=== PATIENT | female | born 1935 | race Caucasian/White ===

== ENCOUNTER 2018-03-20 22:30 | Emergency (ER) | payer MEDICARE, OTHER ==
[~2018-03-20] VITALS: Ht 152.4 cm; Wt 65.3 kg
[~2018-03-20 22:30] MED LIST: ACCUPRIL40 MG; ADULT LOW DOSE81 MG; ALPRAZOLAM0.25 M1; B-121000 MCG; CALCIUM 600 +1 EAC5; FOLIC ACID1 MG; NEURONTIN 300M300 M2; NORVASC 5 MG TAB5 MG; PLAVIX 75 MG TA75 MG; RANITIDINE HCL300 M1; TIMOLOL MA0.5 %/5 M2; TRIAMTERENE-HC1 EAC3; VITAMIN D-40400 UNIT
[2018-03-21 00:55] VITALS: BP 158/77
== END 2018-03-21 00:55 | disposition home or self-care (01) ==
LOC: M.ERS 22:30
DX: S01.01XA Laceration without foreign body of scalp, initial encounter (principal); I10 Essential (primary) hypertension; Z96.642 Presence of left artificial hip joint; Z96.653 Presence of artificial knee joint, bilateral; Z88.5 Allergy status to narcotic agent; W01.190A Fall on same level from slipping, tripping and stumbling with subsequent striking against furniture, initial encounter; Y93.89 Activity, other specified; Y92.89 Other specified places as the place of occurrence of the external cause; Y99.8 Other external cause status

== ENCOUNTER 2018-03-30 08:19 | Emergency (ER) | payer MEDICARE, OTHER ==
[~2018-03-30] VITALS: Ht 160 cm; Wt 65.8 kg
[2018-03-30 10:23] VITALS: BP 152/70
== END 2018-03-30 10:24 | disposition home or self-care (01) ==
LOC: M.ERS 08:19
DX: S32.89XA Fracture of other parts of pelvis, initial encounter for closed fracture (principal); I10 Essential (primary) hypertension; Z96.642 Presence of left artificial hip joint; Z96.653 Presence of artificial knee joint, bilateral; Z88.6 Allergy status to analgesic agent; X58.XXXA Exposure to other specified factors, initial encounter; Y93.89 Activity, other specified; Y92.89 Other specified places as the place of occurrence of the external cause; Y99.8 Other external cause status

== ENCOUNTER → 2019-08-25 | Outpatient (CLI) | payer OTHER | LOC: M.RAD 15:40 | DX: N63.21 Unspecified lump in the left breast, upper outer quadrant (principal); R92.1 Mammographic calcification found on diagnostic imaging of breast ==

== ENCOUNTER → 2019-08-27 | Outpatient (CLI) | payer OTHER ==
--- NOTE | 2019-09-02 17:07 | PATH ---
[address] [address] PATHOLOGY RPT PROCEDURE Name: PATTIE ENCARNACION Room: [facility] Ree#: [id number] Admission: 08/27/19 Date of : 34 Discharge: Report #: [id number] Path Case #: [id number] LCA Accession Number: [id number] . 01 Material submitted: . breast - LEFT BREAST BIOPSY, 1:00, 5CMFN. Modifiers: left . 01 Clinical history: . Left breast mass 1.41 x 0.99 x 1.88 cm . 02 Diagnosis: Left breast mass, 1:00, 5 cm from nipple, image-guided core biopsies: - INFILTRATING LOBULAR CARCINOMA, LOW-GRADE, SPANNING 12 MM, ASSOCIATED WITH CALCIFICATIONS. SEE COMMENT. (SHLOMO:juancarlos; 08/31/2019) MBR 08/31/2019 1117 Local . 02 Comment: Specimen type: Image-guided core biopsies Tumor site: Left breast, 1:00, 5 cm from nipple Tumor quantitation: Approximately 90% of submitted tissues Histologic type: Lobular carcinoma Histologic grade: Low-grade (I of III) Tubules, nuclei and mitoses: 3, 1, 1 LVSI: Not identified Microcalcifications: Identified Markers: Breast tumor profile pending Block: A1 . . Properly controlled immunohistochemical stains performed on A3 show the malignant cells to have the following results supporting the classification: . E-cadherin - negative. Keratin AE1/AE3 - positive. . The tumor infiltrates in the classic lobular "bermudian file" fashion as well as in small nests with scattered tubular formation and is associated with focal lobular neoplasia. No ductal carcinoma in situ is present. Breast tumor profile studies are pending on A1 and will be the subject of an addendum report. Reviewed with Dr. Louisa Rosenberg who agrees with the diagnosis. Zoila Edwards ([facility] breast navigator) notified at approximately 10:20 on 08/31/2019. . (SHLOMO:juancarlos; 08/31/2019) . 02 [place] [address] PATHOLOGY RPT PROCEDURE Name: PATTIE ENCARNACION Room: [facility] Keenan#: [id number] Admission: 08/27/19 Date of : 34 Discharge: Report #: [id number] Path Case #: [id number] Addendum: . Special studies report received from [facility], [address] [place] [address], [address], [place], [address], on case [id number], labeled with their number [id number], dated . . Breast/Prognostic Marker Analysis . Specimen Site: Lt Breast,1:00, 5 cm FN, Breast Carcinoma (Biopsy) Specimen ID #: [id number] . . ER (Estrogen Receptor) Present/Positive Percent: 95.09% Analysis: Image Comments: Staining intensity: Strong . IN (Progesterone Receptor) Present/Positive Percent: 78.92% Analysis: Image Comments: Staining intensity: Moderate to strong . HER2 Not Over-Expressed Score: 1+ Analysis: Image . Ki-67 Low Proliferation Percent: 2.65% Analysis: Image . Time to Fixation (Cold Ischemic Time): 4 minutes Duration of Fixation: 6-72 hours Type of Fixative: 10% Neutral Buffered Formalin . at [facility]. Leatha Carrero M.D. Pathologist . . Methodology The HER2 Receptor protein expression is analyzed using the Burrows HER2 rabbit monoclonal antibody (clone 4B5). This assay is used for diagnostic determination of the HER2 protein over-expression in paraffin embedded, formalin fixed breast cancer tissue on the Burrows Benchmark. The specimen is processed using a secondary antibody-[place] [address] PATHOLOGY RPT PROCEDURE Name: PATTIE ENCARNACION Room: [facility] Keenan#: [id number] Admission: 08/27/19 Date of : 34 Discharge: Report #: [id number] Path Case #: [id number] The membrane staining of the tumor is determined either by manual score or image analysis. This antibody is intended for in vitro diagnostic use. The score is reported as 0, 1+, 2+, or 3+. This test is used for clinical purposes. . A rabbit monoclonal antibody (clone SP1) that recognized the Estrogen Receptor is used to perform immunohistochemistry on routinely fixed (formalin) paraffin embedded tissue on the Burrows Benchmark. The specimen is processed using a secondary antibody-HRP conjugate detection system. The percentage of stained tumor nuclei is determined either manually or by image analysis. This test is intended for in vitro diagnostic use. This test is used for clinical purposes. . A rabbit monoclonal antibody (clone 1E2) that recognized the Progesterone Receptor is used to perform immunohistochemistry on routinely fixed (formalin) paraffin embedded tissue on the Burrows Benchmark. The specimen is processed using a secondary antibody-HRP conjugate detection system. The percentage of stained tumor nuclei is determined either manually or by image analysis. This test is intended for in vitro diagnostic use. This test is used for clinical purposes. . A rabbit monoclonal antibody (clone 30-9) that recognized Ki67 is used to perform immunohistochemistry on routinely fixed (formalin) paraffin embedded tissue on the Burrows Benchmark. The specimen is processed using a secondary antibody-HRP conjugate detection system. The percentage of stained tumor nuclei is determined either manually or by image analysis. This test is intended for in vitro diagnostic use. This test is used for clinical purposes. . Intended Use: This antibody is intended for in vitro diagnostic (IVD) use. HER2 (4B5) is a rabbit monoclonal antibody intended for the semi-quantitative detection of HER2 antigen in sections of formalin-fixed, paraffin embedded normal and neoplastic tissue. . This antibody is intended for in vitro diagnostic (IVD) use. Estrogen Receptor (ER) (SP1) is a rabbit monoclonal antibody (IgG) that is intended for the qualitative detection of estrogen receptor (ER) antigen in sections of formalin-fixed, paraffin-embedded tissue. ER is a rabbit monoclonal antibody that recognizes human estrogen receptor alpha. . This antibody is intended for in vitro diagnostic (IVD) use. Progesterone Receptor (IN) (1E2) is a rabbit monoclonal antibody (IgG) that is intended for the qualitative detection of progesterone receptor (IN) antigen in sections of formalin fixed, paraffin embedded tissue. IN is a rabbit monoclonal antibody that recognizes the A and B forms of the human progesterone receptor. . This antibody is intended for in vitro diagnostic (IVD) use. Ki-67 (30-9) [place] [address] PATHOLOGY RPT PROCEDURE Name: APPLE ENCARNACIONIA Nita Room: [facility]#: [id number] Admission: 08/27/19 Date of : 34 Discharge: Report #: [id number] Path Case #: [id number] is a rabbit monoclonal antibody (IgG) directed against C-terminal portion of Ki-67 antigen. Staining for Ki-67 can be used to aid in assessing the proliferative activity of normal and neoplastic tissue. Ki-67 is a nuclear protein expressed in proliferating cells. During the cell cycle, the Ki-67 antigen is present in the G1, S, G2 and M phase but is absent in the G0 (quiescent phase). . . Disclaimer: This Test was performed by [facility] at [address], [address]. . [facility] is a business unit of [employer] a wholly-owned subsidiary of [employer]. . This assay has not been validated on decalcified tissues. Results should be interpreted with caution if this specimen was decalcified given the likelihood of false negativity on decalcified specimens. . Any image(s) that accompany this report is/are a open claims representative image(s) only and should not be used to render a diagnosis. . This interpretation is contingent on the specimen and the clinical information received. . For any special tests/stains performed, known positive cells or tissues are tested with each marker and examined to ensure positivity. Positive and negative internal controls, if present, react appropriately. . This analysis is an adjunct to the evaluation of the referring physician and does not represent a final diagnosis. . The immunohistochemistry tests performed at [facility]. were validated on tissue fixed in 10% neutral buffered formalin. The performance characteristics of the tests performed on tissue processed in other fixatives is not known. . HER2 testing at [facility] [employer] is performed in compliance with the 2018 updated ASCO/CAP Clinical Practice Guideline Focused Update. If the result is EQUIVOCAL (2+), it must be confirmed by an alternative assay such as FISH or Dual SANDY. REF: Francisca TEJADA, MARKUS Gallegos et al: Human Epidermal Growth Factor Receptor 2 Testing in Breast Cancer: ASCO/CAP Clinical Practice Guideline Focused Update. J Clin Oncol 36:0931-7563, 2018. . HER2 and ER/IN ASCO/CAP guidelines require fixation in neutral buffered formalin for a minimum of 6 and a maximum of 72 hours. Fixation times less than 6 hours may not adequately preserve cell [place] [address] PATHOLOGY RPT PROCEDURE Name: PATTIE ENCARNACION Room: [facility] Keenan#: [id number] Admission: 08/27/19 Date of : 34 Discharge: Report #: [id number] Path Case #: [id number] longer than 72 hours may cause excess cross-linking of proteins reducing the antigen available for staining. Either scenario can cause reduced staining; hence false negative results are possible and should be considered for these situations if the HER2 IHC score is less than 3+ or ER or IN is negative (no staining or <1% positive). It is recommended that specimens fixed longer than 72 hours with HER2 IHC scores less than 3+ be confirmed by HER2 FISH or Dual SADNY. The time from biopsy/excision to fixation in formalin (cold ischemic time) must be less than 1 hour. Time to fixation (cold ischemic time) greater than 1 hour should be interpreted with caution. HER2 testing, mainly HER2 by FISH, is particularly vulnerable since excessive cold ischemic time results in preferential loss of HER2 probe signals that may lead to false negative results. . SCORE STAINING PATTERN IN TUMOR CELLS INTERPRETATION RESULTS 0 No staining observed or incomplete, faint membrane staining in less than or equal to 10% of tumor cells. Negative 1+ Incomplete, faint membrane staining in greater than 10% of tumor cells. Negative 2+ Weak to moderate complete membrane staining observed in greater than 10% of tumor cells. Equivocal* *Must be confirmed by alternative assay (IHC/FISH/Dual SANDY) 3+ Intense, complete membrane staining in greater than 10% of tumor cells. Positive . A complete copy of the report is on file. . Professional and Technical services performed by [employer] at [address] [place] [address]. . (SHLOMO:amj 09/02/2019) . LBQ/09/02/2019 Addendum Electronically Signed by Ghulam Gomez MD, Pathologist . 02 Electronically signed: . Ghulam Gomez MD, Pathologist NPI- [id number] . 01 Gross description: . Received in formalin labeled "Pattie Encarnacion, left breast biopsy 1:00, 5 cm FN," are 3 distinct needle cores of yellow-ramey fibrofatty tissue ranging from 1.0-1.3 cm in length and measuring 0.2 cm each in diameter. [address] [address] PATHOLOGY RPT PROCEDURE Name: PATTIE ENCARNACION Nita Room: [facility]#: [id number] Admission: 08/27/19 Date of : 34 Discharge: Report #: [id number] Path Case #: [id number] The tissue is submitted in its entirety in cassettes A1-A3. The cold ischemic time is 4 minutes. The total formalin fixation time is greater than 6 hours and less than 72 hours. (TSD; 08/27/2019) TOB/TOB 08/31/2019 1107 Local . 02 Pathologist provided ICD-10: C50.912 . 02 CPT . 291844, T73160, X98228 Specimen Comment: A courtesy copy of this report has been sent to [phone] Specimen Comment: [phone], Specimen Comment: Report sent to ,DR MCFADDEN / DR EDWARDS Performed at: 01 [facility] [address] [place] [address] [address], [place], [place] [id number] MD Ramón Moeller MD Phone: [phone] Performed at: [address] [facility] [address] [id number] MD Ghulam Gomez MD Phone: [phone]
== END ==
LOC: M.ULTRA 07:59
DX: C50.912 Malignant neoplasm of unspecified site of left female breast (principal); R92.1 Mammographic calcification found on diagnostic imaging of breast; I10 Essential (primary) hypertension; H40.9 Unspecified glaucoma; Z96.642 Presence of left artificial hip joint; Z96.653 Presence of artificial knee joint, bilateral; Z98.890 Other specified postprocedural states; Z79.82 Long term (current) use of aspirin; Z88.8 Allergy status to other drugs, medicaments and biological substances; Z79.899 Other long term (current) drug therapy

== ENCOUNTER → 2019-09-07 | Outpatient (CLI) | payer OTHER ==
[2019-09-07 13:36] LABS: CREATININE 1.3 mg/dL (0.6-1.3)
== END ==
LOC: M.LAB 13:13 → M.MRI 14:30
PROVIDERS: Surgery
DX: N63.21 Unspecified lump in the left breast, upper outer quadrant (principal); R92.2 Inconclusive mammogram

== ENCOUNTER → 2019-10-05 | Day surgery (SDC) | payer OTHER ==
[~2019-10-05] MED LIST changes: +LOTEMAX SM5 GM OPHTHALMIC; -NEURONTIN 300M300 M2; +NEURONTIN 300M300 M2 PO; +TIMOPTIC5 ML OPHTHALMIC; +TRAMADOL 50 MG50 MG PO; +VITAMIN D PO
[2019-10-05 07:04] LABS: HEMATOCRIT 36.5 % (37.0-47.0); HEMOGLOBIN 12.3 gm/dL (12.0-15.0); MCH 32.4 pg (26.0-34.0); MCHC 33.6 g/dL (28.0-37.0); MCV 96.4 fL (80.0-100.0); MPV 7.1 fl. (7.2-11.1); RBC 3.79 mil/uL (4.20-5.00); RDW-CV 12.9 % (10.5-14.5); WBC 6.7 thou/uL (4.0-11.0)
[2019-10-05 07:16] LABS: CALCIUM 8.9 mg/dL (8.5-10.1); POTASSIUM 4.1 mmol/L (3.5-5.1)
[2019-10-05 07:21] LABS: ALBUMIN 3.7 g/dL (3.4-5.0); TOTAL BILIRUBIN 0.4 mg/dL (<0.1-1.0); TOTAL PROTEIN 6.8 g/dL (6.4-8.2)
--- NOTE | 2019-10-06 07:42 | OP ---
[address] [address] OPERATIVE REPORT Name: NADYA ENCARNACION Nita Room: [facility]#: [id number] Admission: 10/05/19 Attend Phys: Fernanda Tillman DO Discharge: Date of : 34 Report #: [id number] THIS REPORT FOR: //name// cc: AMILCAR MCFADDEN MD, JESSE MD ~ THIS REPORT FOR: //name// CC: Fernanda MCFADDEN DATE OF SERVICE: 10/05/2019 PREPROCEDURE DIAGNOSIS: Left breast cancer. POSTPROCEDURE DIAGNOSIS: Left breast cancer. FINDINGS: Clip localization of the left breast mass. There was a deep, hot and blue sentinel lymph node. Uptake at the nipple was approximately 4200, uptake on the lymph node was 307. SURGEON: Fernanda Tillman DO COSURGEON: Ena Mejias, VIMALY2. SUPERVISOR FR[employer] GRADING: NANCY Sherman. OPERATION PERFORMED: Left breast clip localized lumpectomy and left deep sentinel lymph node dissection. ANESTHESIA: LMA and local. ESTIMATED BLOOD LOSS: 10 mL. SPECIMENS: Left breast lumpectomy and left deep sentinel lymph node. COMPLICATIONS: None. CONDITION: Stable. DISPOSITION: PACU to home. HISTORY OF PRESENT ILLNESS: The patient is a very pleasant 84-year-old female who presented to my office with a change in her mammogram. She underwent a biopsy of a suspicious mass, which returned as lobular carcinoma. She underwent an MRI and was seen by Oncology and Radiation Oncology[place] [address] OPERATIVE REPORT Name: NADYA ENCARNACION Nita Room: [facility].#: [id number] Admission: 10/05/19 Attend Phys: Fernanda Tillman DO Discharge: Date of : 34 Report #: [id number] move forward with a lumpectomy and a left sentinel lymph node dissection. Risks discussed included bleeding, infection, pain, scar formation, deformation of the breast, need for further surgery, chronic pain, numbness or swelling of the left arm and risks of anesthesia. The patient understood these risks and elected to proceed. DESCRIPTION OF PROCEDURE: The patient was brought initially to preop and then taken to Radiology where she underwent insertion of a RFID clip in the left breast. She also underwent a nuclear medicine injection around the left nipple. She then returned to preop where she underwent informed consent. She was then taken to the OR where she was laid supine on the operating room table. SCDs were placed on bilateral lower extremities. Ancef was given in the perioperative period. General LMA anesthesia was induced by Anesthesia without difficulty. Timeout was performed to verify patient and procedure. A 5 mL of Lymphazurin blue dye were injected in the periareolar area. Left breast and axilla were then prepped and draped in the standard sterile fashion. Clipped probe was brought onto the field and the area of the highest uptake was marked. A 10 mL of 0.5% Marcaine were injected and the areas were marked. Curvilinear incision was made with #15 blade. Cautery was used for hemostasis. Then, using the probe for guidance, a lumpectomy specimen was formed utilizing cautery. Depth of our dissection was the pectoralis fascia. Specimen was then marked in the superior and lateral direction. Before the specimen was handed off, the probe was once again used to verify that we had fairly good margins around the area of the clip. Specimen was then placed in the TransPak container and was taken to Radiology where it underwent mammography. The radiologist returned the phone call indicating that we had the original clip and the RFID clip. The cavity was copiously irrigated and hemostasis was assured. The cavity was then packed with a moistened lap. We then turned our attention to the left axilla. Neoprobe was used to investigate the area of the nipple. Highest uptake was approximately 4200, left axilla was then interrogated as well and the area of the highest uptake was marked. A 10 mL of 0.5% Marcaine were injected in this area. Incision was made with #15 blade. Cautery was used for hemostasis. Weitlaner retractor was then placed within the wound. Then, using a combination of very careful blunt and cautery dissection, we dissected down into the axillary tissue. Clavipectoral fascia was gently elevated using a DeBakey and was incised using cautery. We continued to dive down deep into the axilla using the Neoprobe for guidance. Once we were nearly to the chest wall, a hot blue node was identified. It was gently elevated using an Allis and was circumferentially dissected free. A small vessel was seen to be entering the lymph node. This was clipped with a medium clip and the lymph node was then completely excised. Highest uptake on the node was 307. It was handed off as left sentinel lymph node. Neoprobe was returned into the axilla and there was no further uptake noted. This wound was then also copiously irrigated until clear and hemostasis was assured. FloSeal was then brought onto the field and was introduced into both of the wounds. Both of the wounds were then closed in a layered fashion using deep and superficial stitches of 3-0 Vicryl in inverted [place] [address] OPERATIVE REPORT Name: NADYA ENCARNACION Room: [facility].#: [id number] Admission: 10/05/19 Attend Phys: Fernanda Tillman DO Discharge: Date of : 34 Report #: [id number] interrupted fashion. Skin wounds were both closed with running 4-0 Monocryl. A total of 30 mL of 0.5% Marcaine were used to anesthetize the wounds. Wounds were then cleansed and covered with Mastisol, Steri-Strips, 4 x 4's, and a Tegaderm. The patient was then allowed to awaken from anesthesia, was extubated and transported to the recovery room with no further difficulties. Counts were correct x 2 at the conclusion of the case. <ELECTRONICALLY SIGNED> By: Fernanda Tillman DO 10/06/19 0742 1158 1240Chayanna Tillman DO /nt
--- NOTE | 2019-10-08 17:07 | PATH ---
[address] [address] PATHOLOGY RPT PROCEDURE Name: PATTIE ENCARNACION Room: [facility]#: [id number] Admission: 10/05/19 Date of : 34 Discharge: Report #: [id number] Path Case #: [id number] LCA Accession Number: [id number] . 01 Material submitted: . PART A: breast - LEFT BREAST LUMPECTOMY; STITCH BECERRA SHORT SUP AND LONG LAT. Modifiers: left PART B: lymph node - LEFT SENTINEL LYMPH NODE, TANYA CABRERA, NUMBER 307. Modifiers: left . 01 Clinical history: . Left breast lobular carcinoma . 02 Diagnosis: A. Left breast lumpectomy: - INFILTRATING LOBULAR CARCINOMA, LOW-GRADE, SPANNING 16 MM, ADJACENT TO CHANGES OF PRIOR BIOPSY (INCLUDING METALLIC CLIP AND CYLINDRICAL BIOPSY MARKER), WITH ALL SURGICAL MARGINS FREE OF INVOLVEMENT AND CLOSEST (POSTERIOR) 3 MM AWAY. SEE COMMENT. . B. Left sentinel lymph node, hot, blue, #307: - One benign lymph node (0/1). See comment. (SHLOMO:pit 10/08/2019) QTP 10/08/2019 1514 Local . 02 Comment: Surgical Pathology Cancer Case Summary . Protocol posting date: April 2019 . INVASIVE CARCINOMA OF THE BREAST: Resection . Procedure ___ Other: Lumpectomy . Specimen Laterality ___ Left . + Tumor Site + ___ Not specified . Tumor Size ___ Greatest dimension of largest invasive focus >1 mm: 16 mm . Histologic Type ___ Invasive lobular carcinoma . Histologic Grade ([place] Histologic Score) [place] [address] PATHOLOGY RPT PROCEDURE Name: PATTIE ENCARNACION Room: [facility].#: [id number] Admission: 10/05/19 Date of : 34 Discharge: Report #: [id number] Path Case #: [id number] . Glandular (Acinar)/Tubular Differentiation ___ Score 3 (<10% of tumor area forming glandular/tubular structures) . Nuclear Pleomorphism ___ Score 1 (nuclei small with little increase in size in comparison with normal breast epithelial cells, regular outlines, uniform nuclear chromatin, little variation in size) . Mitotic Rate ___ Score 1 . Overall Grade ___ Grade 1 (scores of 3, 4, or 5) . + Tumor Focality + ___ Single focus of invasive carcinoma . Ductal Carcinoma In Situ (DCIS) ___ Not identified . Margins Invasive Carcinoma Margins ___ Uninvolved by invasive carcinoma Distance from closest margin: ___ Specify: 3 mm . + Specify closest margin(s): Posterior . Regional Lymph Nodes ___ Uninvolved by tumor cells Total Number of Lymph Nodes Examined: 1 Number of [place] Nodes Examined: 1 . + Lymphovascular Invasion + ___ Not identified . Pathologic Stage Classification (pTNM, AJCC 8th Edition) . Primary Tumor (pT) ___ pT1: Tumor < or = 20 mm in greatest dimension . Regional Lymph Nodes Modifier (required only if applicable) ___ (sn): [place] node(s) evaluated. . Regional Lymph Nodes (pN) ___ pN0:No regional lymph node metastasis identified or ITCs only# . + [place] [address] PATHOLOGY RPT PROCEDURE Name: PATTIE ENCARNACION Room: [facility]#: [id number] Admission: 10/05/19 Date of : 34 Discharge: Report #: [id number] Path Case #: [id number] + Specify: Scattered lobular carcinoma in situ, sclerosing adenosis with calcifications and several minute incidental fibroadenomas with fibrosis. . . + ___ Breast Biomarker Testing Performed on Previous Biopsy + Testing Performed on A1 . + Estrogen Receptor (ER) + ___ Positive 95.09% . + Progesterone Receptor (PgR) + ___ Positive 78.92% . + HER2 (by immunohistochemistry) + ___ Negative (Score 1+) . + ___ Ki-67 percentage of positive nuclei: 2.65% . + Microcalcifications + ___ Present in invasive carcinoma + ___ Present in non-neoplastic tissue + ___ Other: Medial calcification of blood vessels . + Clinical History + ___ Other: Prior left breast biopsy, 1:00, 5 cm from nipple, image guided core biopsy performed around 08/27/2019 showing infiltrating lobular carcinoma, low-grade, spanning 12 mm ([id number]) . Foci of invasive tumor are identified in A5, A7 - A9 and A15. Properly controlled keratin AE1/AE3 stains performed on B1 - B3 shows no evidence of metastatic tumor. (SHLOMO:[facility]/stephen 10/08/2019) . 02 Electronically signed: . Ghulam Gomez MD, Pathologist NPI- [id number] . 01 Gross description: . A. The specimen is received in formalin, labeled "Pattie Encarnacion, left breast lumpectomy" and consists of an oriented 58 g lumpectomy specimen with a long stitch lateral and short superior. It measures 6.8 cm L-M, 5.5 cm S-I, 3.0 cm A-P, and is inked as follows: superior-blue, inferior-green, medial-red, lateral-yellow, anterior-orange, and posterior-black. It is sectioned from lateral to medial revealing a stellate pink-shell mass measuring 1.6 x 1.5 cm that is 0.6 cm from posterior, 0.5 cm anterior, 1.0 cm inferior, greater than 2 cm superior, medial, and lateral. Present within the mass are previous biopsy changes with a metallic clip and a cylindrical biopsy marker. The parenchyma lateral to the mass shows hemorrhage with biopsy changes[place] [address] PATHOLOGY RPT PROCEDURE Name: PATTIE ENCARNACION Room: [facility]#: [id number] Admission: 10/05/19 Date of : 34 Discharge: Report #: [id number] Path Case #: [id number] additional mass lesions. The specimen is representatively submitted as follows: . A1-A2: Lateral, perpendicular A3-A11: Entire mass (3 trisected full-thickness sections) A12-A14: Trisected slice lateral mass A15-A17: Trisected slice medial mass A18-A19: Medial, perpendicular . The specimen was collected at 11 AM on 10/05/2019 and placed in formalin at 11:13 AM. The cold ischemic time is 13 minutes and the total formalin fixation time is greater than 6 hours but less than 72 hours. . B. The specimen is received in formalin, labeled "Pattie Encarnacion, left sentinel lymph node hot, blue, 307" and consists of a segment of yellow lobulated tissue measuring 4.0 x 1.8 x 1.2 cm. Present within is a lymph node measuring 2.3 x 1.5 cm showing white shell cut surfaces. The lymph node is entirely submitted in B1-B3 and the remainder of the specimen in B4. (SD; 10/06/2019) SYU/SYU 10/08/2019 1435 Local . 02 Pathologist provided ICD-10: C50.912 . 02 CPT . 477878, 170665, G44593 Specimen Comment: A courtesy copy of this report has been sent to [phone] Specimen Comment: Report sent to Performed at: [address], [place], [place] [id number] MD Ramón Moeller MD Phone: [phone] Performed at: 02 [facility] [address], [place], [place] [id number] MD Ghulam Gomez MD Phone: [phone]
--- NOTE | 2019-10-22 14:51 | EKG ---
[place] [address] ELECTROCARDIOGRAM REPORT Name: NADYA ENCARNACION Room: [facility]#: [id number] Admission: 10/05/19 Attend Phys: Fernanda Tillman, Discharge: Date of : 33 Date of Service: 10/05/19718 Report #: [id number] THIS REPORT FOR: //name// 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
== END | disposition home or self-care (01) ==
LOC: M.SUR 06:34 → M.RAD 08:00 → EDSTATUS 08:00 → M.SUR 08:00 → M.ULTRA 08:00
PROVIDERS: Surgery
DX: C50.912 Malignant neoplasm of unspecified site of left female breast (principal); Z88.8 Allergy status to other drugs, medicaments and biological substances; Z79.899 Other long term (current) drug therapy; I10 Essential (primary) hypertension; H40.9 Unspecified glaucoma; K21.9 Gastro-esophageal reflux disease without esophagitis; M19.90 Unspecified osteoarthritis, unspecified site; Z86.73 Personal history of transient ischemic attack (TIA), and cerebral infarction without residual deficits; Z96.649 Presence of unspecified artificial hip joint; Z96.659 Presence of unspecified artificial knee joint; Z98.890 Other specified postprocedural states; Z80.3 Family history of malignant neoplasm of breast; Z79.01 Long term (current) use of anticoagulants

== ENCOUNTER → 2019-10-19 | Outpatient (CLI) | payer OTHER | LOC: M.RAD 09:08 | DX: C50.412 Malignant neoplasm of upper-outer quadrant of left female breast (principal); Z17.0 Estrogen receptor positive status [ER+]; Z79.811 Long term (current) use of aromatase inhibitors ==

== ENCOUNTER 2020-05-26 00:28 | Emergency (ER) | payer OTHER ==
[~2020-05-26] VITALS: Ht 152.4 cm; Wt 61.2 kg
[2020-05-26] MEDS ORDERED: RANITIDINE (01:00)
[2020-05-26 01:14] LABS: ABSOLUTE EOSINOPHILS 0.3 thou/uL (0.0-0.7); ABSOLUTE LYMPHOCYTES 2.8 thou/uL (0.8-5.3); ABSOLUTE NEUTROPHILS 6.8 thou/uL (1.6-8.1); BASOPHILS 0.4 %; EOSINOPHILS 2.9 %; HEMATOCRIT 32.4 % (37.0-47.0); HEMOGLOBIN 10.9 gm/dL (12.0-15.0); LYMPHOCYTES 25.7 %; MCH 31.8 pg (26.0-34.0); MCHC 33.8 g/dL (28.0-37.0); MCV 94.1 fL (80.0-100.0); MONOCYTES 9.4 %; NUCLEATED RBCS 0 /100WBC; PLATELET COUNT* 270 thou/uL (150-400); POLYS 61.6 %; RBC 3.44 mil/uL (4.20-5.00); RDW-CV 12.4 % (10.5-14.5)
[2020-05-26 01:20] LABS: CALCIUM 8.5 mg/dL (8.5-10.1); CREATININE 1.8 mg/dL (0.6-1.3); POTASSIUM 4.4 mmol/L (3.5-5.1)
[2020-05-26 01:24] LABS: ALBUMIN 3.4 g/dL (3.4-5.0); MAGNESIUM 1.8 mg/dL (1.8-2.4); TOTAL BILIRUBIN 0.3 mg/dL (<0.1-1.0); TOTAL PROTEIN 6.4 g/dL (6.4-8.2)
[2020-05-26 04:01] LABS: URINE BILIRUBIN NEGATIVE (Negative); URINE BLOOD NEGATIVE (Negative); URINE CLARITY CLEAR; URINE COLOR YELLOW; URINE GLUCOSE-RANDOM NEGATIVE (Negative); URINE KETONES NEGATIVE (Negative); URINE LEUKOCYTES-REFLEX 1+ (Negative); URINE NITRITE-REFLEX NEGATIVE (Negative); URINE PROTEIN NEGATIVE (Negative); URINE UROBILINOGEN 0.2 E.U./dl (0.2-1.0)
[2020-05-26 04:19] LABS: BACTERIA-REFLEX >30 Many /HPF (None Seen); CASTS None Seen /LPF (None Seen); CRYSTALS None Seen /LPF (None Seen); MUCUS 0-3 Light strn/LPF (None Seen); SQUAMOUS 0-3 Few /LPF (0-3); URINE RBC 3-10 Few /HPF (0-2); WBC CLUMPS Few (None Seen)
[2020-05-26] MEDS ORDERED: MACROBID 100 M100 M1 PO (04:38)
[2020-05-26 04:54] VITALS: BP 156/65
--- NOTE | 2020-05-26 10:20 | EKG ---
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
== END 2020-05-26 04:57 | disposition still patient (30) ==
LOC: M.ERS 00:28
PROVIDERS: Emergency Medicine
DX: K29.80 Duodenitis without bleeding (principal); K80.20 Calculus of gallbladder without cholecystitis without obstruction; N39.0 Urinary tract infection, site not specified; I10 Essential (primary) hypertension; Z96.642 Presence of left artificial hip joint; Z96.653 Presence of artificial knee joint, bilateral; Z88.5 Allergy status to narcotic agent

== ENCOUNTER 2021-07-15 09:33 | Emergency (ER) | payer OTHER ==
[~2021-07-15] VITALS: Ht 152.4 cm; Wt 59.0 kg
[~2021-07-15 09:33] MED LIST changes: +MACROBID 100 M100 M1 PO; +RANITIDINE
[2021-07-15 09:58] LABS: URINE BILIRUBIN NEGATIVE (Negative); URINE BLOOD NEGATIVE (Negative); URINE CLARITY SL CLOUDY; URINE COLOR STRAW; URINE GLUCOSE-RANDOM NEGATIVE (Negative); URINE KETONES NEGATIVE (Negative); URINE NITRITE-REFLEX NEGATIVE (Negative); URINE PROTEIN NEGATIVE (Negative); URINE UROBILINOGEN 0.2 E.U./dl (0.2-1.0)
[2021-07-15 10:05] LABS: URINE LEUKOCYTES-REFLEX 3+ (Negative)
[2021-07-15 10:08] LABS: ABSOLUTE EOSINOPHILS 0.4 thou/uL (0.0-0.7); ABSOLUTE LYMPHOCYTES 1.4 thou/uL (0.8-5.3); ABSOLUTE MONOCYTES 0.8 thou/uL (0.0-1.2); ABSOLUTE NEUTROPHILS 5.5 thou/uL (1.6-8.1); BASOPHILS 0.4 %; EOSINOPHILS 5.1 %; HEMATOCRIT 38.3 % (37.0-47.0); HEMOGLOBIN 12.6 gm/dL (12.0-15.0); LYMPHOCYTES 17.3 %; MCH 31.5 pg (26.0-34.0); MCHC 32.8 g/dL (28.0-37.0); MCV 95.8 fL (80.0-100.0); MONOCYTES 9.8 %; MPV 7.1 fl. (7.2-11.1); NUCLEATED RBCS 0 /100WBC; PLATELET COUNT* 245 thou/uL (150-400); POLYS 67.4 %; RDW-CV 12.9 % (10.5-14.5); WBC 8.2 thou/uL (4.0-11.0)
[2021-07-15 10:14] LABS: SQUAMOUS >10 Many /LPF (0-3); URINE RBC None Seen /HPF (0-2)
[2021-07-15 10:15] LABS: BACTERIA-REFLEX None Seen /HPF (None Seen); CRYSTALS None Seen /LPF (None Seen)
[2021-07-15 10:17] LABS: CALCIUM 9.2 mg/dL (8.5-10.1); CREATININE 1.1 mg/dL (0.6-1.3); POTASSIUM 4.5 mmol/L (3.5-5.1)
[2021-07-15 10:21] LABS: ALBUMIN 3.7 g/dL (3.4-5.0); TOTAL BILIRUBIN 0.5 mg/dL (<0.1-1.0)
[2021-07-15] MEDS ORDERED: AUGMENTIN 875-1 EACH PO ×2 (12:12→12:14)
[2021-07-15 13:17] VITALS: BP 144/59
--- NOTE | 2021-07-16 15:58 | EKG ---
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: : 1935 Requested By: Chas Acharya Order Number: [id number] MD: Catracho Franks Measurements Intervals [place] Rate: 74 P: 34 [place]: 173 QRS: -30 QRSD: 129 T: -6 QT: 411 QTc: 456 Interpretive Statements Sinus rhythm Atrial premature complex Right bundle branch block Inferior infarct, old Compared to ECG 05/26/2020 00:53:49 Atrial premature complex(es) now present Myocardial infarct finding now present Electronically Signed On 07-16-2021 15:57:48 AUTOMATION QA LEAD by Catracho Franks [email or web address] <ELECTRONICALLY SIGNED> By: Catracho Franks MD, [facility] 07/16/21 1557 1121 1121 Catracho Franks MD, [facility] /EPI
== END 2021-07-15 13:19 | disposition home or self-care (01) ==
LOC: M.ERS 09:33
PROVIDERS: Family Medicine
DX: N39.0 Urinary tract infection, site not specified (principal); I10 Essential (primary) hypertension; Z79.899 Other long term (current) drug therapy; Z88.5 Allergy status to narcotic agent